=== PATIENT | male | born 1985 | race Caucasian/White ===

== ENCOUNTER 2022-02-21 18:59 | Emergency (ER) | payer SELFPAY ==
[2022-02-21] MEDS ORDERED: Metoclopramide HCl 10 MG TAB ONE (19:34)
[2022-02-21] MEDS ORDERED: Sulfameth/Trimethoprim DS 800-160mg TAB ONE (19:34)
[2022-02-21] MEDS ORDERED: Cephalexin 500 MG CAP ONE (19:34)
== END 2022-02-21 20:20 | disposition home or self-care (01) ==
LOC: MADERS 18:59
DX: L03.90 Cellulitis, unspecified (principal); R11.0 Nausea; F17.200 Nicotine dependence, unspecified, uncomplicated
CPT/HCPCS: 87804; 99283